=== PATIENT | male | born 1980 | race Caucasian/White ===

== ENCOUNTER → 2017-03-14 | Emergency (ER) | payer OTHER ==
[~2017-03-14] VITALS: Ht 180.3 cm; Wt 136.1 kg
[~2017-03-14] MED LIST: ALBUTEROL2.5 MG/3 M IH; SYMBICORT 16010.2 GM IH; ZYNCOF 20-400120 ML PO
== END | disposition home or self-care (01) ==
LOC: ER 00:51
DX: R06.02 Shortness of breath (principal); J40 Bronchitis, not specified as acute or chronic